=== PATIENT | male | born 1990 | race Caucasian/White ===

== ENCOUNTER 2017-08-28 11:16 | Inpatient (IN) | payer MEDICAID ==
[~2017-08-28] VITALS: Ht 177.8 cm; Wt 79.0 kg
[~2017-08-28 11:16] MED LIST: CYCL-1 PO; ONDA8TAB9 PO
[2017-08-28 12:00] LABS: BASOPHILS # (AUTO) 0.1 X10'3 (0-0.2); BASOPHILS % (AUTO) 0.5 % (0-1); EOSINOPHILS # (AUTO) 0.2 X10'3 (0-0.9); EOSINOPHILS % (AUTO) 1.9 % (0-6); HEMATOCRIT 43.5 % (42.0-52.0); HEMOGLOBIN 14.5 g/dl (14.0-17.9); LYMPHOCYTES # (AUTO) 2.2 X10'3 (1.1-4.8); LYMPHOCYTES % (AUTO) 18.9 % (21-51); MEAN CORPUSCULAR HEMOGLOBIN 30.3 PG (27.0-31.0); MEAN CORPUSCULAR HGB CONC 33.3 % (33.0-36.5); MEAN CORPUSCULAR VOLUME 91.1 FL (78-98); MEAN PLATELET VOLUME 10.2 FL (7.4-10.4); MONOCYTES % (AUTO) 8.8 % (2-12); NEUTROPHILS # (AUTO) 8.1 X10'3 (1.8-7.7); NEUTROPHILS % (AUTO) 69.9 % (42-75); PLATELET COUNT 226 X10'3 (140-440); RED BLOOD COUNT 4.77 X10'6 (4.70-6.10); RED CELL DISTRIBUTION WIDTH 13.8 % (11.5-14.5); WHITE BLOOD COUNT 11.6 X10'3 (4.5-11.0)
[2017-08-28 12:24] LABS: ALANINE AMINOTRANSFERASE 33 U/L (12-78); ALBUMIN/GLOBULIN RATIO 0.8 (1.1-1.5); ALKALINE PHOSPHATASE 81 IU/L (46-116); ANION GAP 5 (8-16); ASPARTATE AMINO TRANSFERASE 24 U/L (10-37); BILIRUBIN,TOTAL 0.9 MG/DL (0.1-1.0); BLOOD UREA NITROGEN 20 MG/DL (7-18); BUN/CREATININE RATIO 17.4 (5.4-32.0); CALCIUM 8.6 MG/DL (8.5-10.1); CHLORIDE 106 MMOL/L (99-107); CREATININE 1.15 MG/DL (0.60-1.10); GLUCOSE 82 MG/DL (70-104); POTASSIUM 4.5 MMOL/L (3.5-5.1); SODIUM 137 MMOL/L (135-145); TOTAL CARBON DIOXIDE 25.9 MMOL/L (24-32); TOTAL PROTEIN 6.6 G/DL (6.4-8.2); eGFR 77 ML/MIN
[2017-08-28 14:03] LABS: MAGNESIUM 1.9 MG/DL (1.5-2.4)
[2017-08-28] MEDS ORDERED: CefTRIAXone 2gm/D5W 50ml ADVTG 50 ML IV ONE (14:25)
[2017-08-28] MEDS ORDERED: normal saline 1000ML IV soln IVB ONE (14:25)
[2017-08-28] MEDS ORDERED: aspirin 81mg tab.chew PO ONE (14:25)
[2017-08-28] MEDS ORDERED: acetaminophen 325mg tablet PO ONE (14:30)
[2017-08-28] MEDS ORDERED: iohexol 350MG/ML 100ml bottle IV ONE (14:31)
[2017-08-28] MEDS ORDERED: heparin 10,000 units/1 ML INJ IV PRN (15:25)
[2017-08-28] MEDS ORDERED: heparin 10,000 units/1 ML INJ IV ONE (15:25)
[2017-08-28] MEDS ORDERED: ipratropium/albuterol 3ml nebule NEB ONE (15:50)
[2017-08-28] MEDS ORDERED: normal saline 1000ml 1,000 ML IV SCH (16:03)
[2017-08-28] MEDS ORDERED: potassium Cl 40MEQ/NS 500ml 500 ML IV PRN ×2 (16:05)
[2017-08-28] MEDS ORDERED: acetaminophen 325mg tablet PO PRN ×2 (16:05)
[2017-08-28] MEDS ORDERED: dextrose 50%-water 50ml dispensing syringe IV PRN (16:05)
[2017-08-28] MEDS ORDERED: LORazepam 1 MG tablet PO PRN (16:05)
[2017-08-28] MEDS ORDERED: haloperidol lactate 5mg/ml inj IM PRN (16:05)
[2017-08-28] MEDS ORDERED: LORazepam 2 mg/ml vial IV PRN (16:05)
[2017-08-28] MEDS ORDERED: mag hydrox/Alum hydrox/simeth 30ml oral suspension PO PRN (16:05)
[2017-08-28] MEDS ORDERED: haloperidol 5mg tablet PO PRN (16:05)
[2017-08-28] MEDS ORDERED: HYDROcodone/acetaminophen 5mg/325mg tablet PO PRN (16:05)
[2017-08-28] MEDS ORDERED: magnesium 2GM in 50ml NS 50 ML IV PRN (16:05)
[2017-08-28] MEDS ORDERED: magnesium 4gm in 100ml NS 100 ML IV PRN (16:05)
[2017-08-28] MEDS ORDERED: magnesium Cl slow-release 64mg tablet PO PRN (16:05)
[2017-08-28] MEDS ORDERED: potassium Cl 20 mEq SR tablet PO PRN ×2 (16:05)
[2017-08-28] MEDS ORDERED: magnesium hydroxide 30ml (MOM) UD suspension PO PRN (16:05)
[2017-08-28] MEDS ORDERED: ondansetron/PF 4mg/2ml inj IV PRN (16:05)
[2017-08-28] MEDS ORDERED: HYDROcodone/acetaminophen 10/325mg tab PO PRN (16:05)
[2017-08-28 17:47] LABS: INR 1.2 INR; PARTIAL THROMBOPLASTIN TIME 53 SECONDS (22-32); PROTHROMBIN TIME 12.4 SECONDS (9.0-12.0)
[2017-08-28 20:00] VITALS: BP_SYST 109; BP_SYST 114; BP_SYST 118; BP_DIAS 67; BP_DIAS 74; BP_DIAS 77
[2017-08-28] MEDS ORDERED: temazepam 15mg capsule PO PRN (21:00)
[2017-08-28] MEDS: heparin, porcine 5000 units/ml vial SQ SCH (21:08)
[2017-08-28 23:42] VITALS: BP 130/74
[2017-08-29 01:09] LABS: BASOPHILS # (AUTO) 0.4 X10'3 (0-0.2); BASOPHILS % (AUTO) 3.4 % (0-1); EOSINOPHILS # (AUTO) 0.2 X10'3 (0-0.9); EOSINOPHILS % (AUTO) 1.4 % (0-6); HEMATOCRIT 42.6 % (42.0-52.0); HEMOGLOBIN 14.3 g/dl (14.0-17.9); LYMPHOCYTES # (AUTO) 2.1 X10'3 (1.1-4.8); LYMPHOCYTES % (AUTO) 17.9 % (21-51); MEAN CORPUSCULAR HEMOGLOBIN 30.3 PG (27.0-31.0); MEAN CORPUSCULAR HGB CONC 33.5 % (33.0-36.5); MEAN CORPUSCULAR VOLUME 90.4 FL (78-98); MONOCYTES # (AUTO) 0.8 X10'3 (0-0.9); MONOCYTES % (AUTO) 7.2 % (2-12); NEUTROPHILS # (AUTO) 8.2 X10'3 (1.8-7.7); NEUTROPHILS % (AUTO) 70.1 % (42-75); PLATELET COUNT 239 X10'3 (140-440); RED BLOOD COUNT 4.71 X10'6 (4.70-6.10); RED CELL DISTRIBUTION WIDTH 12.7 % (11.5-14.5); WHITE BLOOD COUNT 11.7 X10'3 (4.5-11.0)
[2017-08-29 01:23] LABS: ALANINE AMINOTRANSFERASE 33 U/L (12-78); ALBUMIN 2.7 G/DL (3.4-5.0); ALBUMIN/GLOBULIN RATIO 0.8 (1.1-1.5); ALKALINE PHOSPHATASE 83 IU/L (46-116); ANION GAP 6 (8-16); ASPARTATE AMINO TRANSFERASE 23 U/L (10-37); BILIRUBIN,TOTAL 0.6 MG/DL (0.1-1.0); BLOOD UREA NITROGEN 18 MG/DL (7-18); BUN/CREATININE RATIO 15.7 (5.4-32.0); CALCIUM 8.4 MG/DL (8.5-10.1); CHLORIDE 108 MMOL/L (99-107); CREATININE 1.15 MG/DL (0.60-1.10); GLUCOSE 121 MG/DL (70-104); POTASSIUM 4.3 MMOL/L (3.5-5.1); SODIUM 139 MMOL/L (135-145); TOTAL CARBON DIOXIDE 24.9 MMOL/L (24-32); TOTAL PROTEIN 6.2 G/DL (6.4-8.2); eGFR 77 ML/MIN
[2017-08-29 01:27] LABS: MAGNESIUM 1.8 MG/DL (1.5-2.4)
[2017-08-29 07:10] VITALS: BP 112/79
[2017-08-29] MEDS ORDERED: pantoprazole 40mg Tablet.DR PO SCH (07:30)
[2017-08-29] MEDS ORDERED: thiamine 100mg tablet PO SCH (08:00)
[2017-08-29] MEDS: heparin, porcine 5000 units/ml vial SQ SCH (08:00)
[2017-08-29] MEDS ORDERED: K and/or MAG REPLACEMENT MC SCH (08:00)
[2017-08-29] MEDS ORDERED: cefTRIAXone 1g/NS 100ml IVPB 100 ML IV SCH (08:00)
[2017-08-29] MEDS ORDERED: folic acid 1mg tablet PO SCH (08:00)
[2017-08-29] MEDS ORDERED: pneumococcal 23-VAL P-sac vacc 25 mcg/0.5ml vial IMVAC ONE (09:00)
[2017-08-29 13:14] VITALS: BP 137/92
[2017-08-29] MEDS ORDERED: iohexol 300mg/ml 100ml inj. ONE (14:01)
== END 2017-08-29 15:09 | disposition left against medical advice (07) | DRG 139 ==
LOC: ER 11:17 → ED HOLD 16:03 → SUR 3N 19:08
PROVIDERS: ADMIT Internal Medicine; ATTEND Family Medicine
PROC: B32T1ZZ Computerized Tomography (CT Scan) of Left Pulmonary Artery using Low Osmolar Contrast (ICD-10-PCS; principal; 2017-08-28)
PROC: B3201ZZ Computerized Tomography (CT Scan) of Thoracic Aorta using Low Osmolar Contrast (ICD-10-PCS; 2017-08-28)
PROC: B32S1ZZ Computerized Tomography (CT Scan) of Right Pulmonary Artery using Low Osmolar Contrast (ICD-10-PCS; 2017-08-28)
PROC: BW281ZZ Computerized Tomography (CT Scan) of Head using Low Osmolar Contrast (ICD-10-PCS; 2017-08-29)
DX: J18.1 Lobar pneumonia, unspecified organism (principal); I42.9 Cardiomyopathy, unspecified; I50.9 Heart failure, unspecified; F17.200 Nicotine dependence, unspecified, uncomplicated; F15.10 Other stimulant abuse, uncomplicated; Z53.21 Procedure and treatment not carried out due to patient leaving prior to being seen by health care provider; F17.210 Nicotine dependence, cigarettes, uncomplicated; H54.62 Unqualified visual loss, left eye, normal vision right eye; F12.90 Cannabis use, unspecified, uncomplicated; R74.8 Abnormal levels of other serum enzymes; G89.29 Other chronic pain; H53.8 Other visual disturbances; M54.9 Dorsalgia, unspecified; R59.0 Localized enlarged lymph nodes; Z79.899 Other long term (current) drug therapy; Z79.01 Long term (current) use of anticoagulants; Z79.82 Long term (current) use of aspirin; Z87.74 Personal history of (corrected) congenital malformations of heart and circulatory system; Z71.6 Tobacco abuse counseling
CPT/HCPCS: 36415; 70470; 71045; 71275; 80053; 82948; 83605; 83735; 83880; 84145; 84484; 85025; 85610; 85730; 87040; 87070; 87502; 87503; 90732; 93005; 93306; 94640; 94760; 96365; 99285; J0696; J1644; J2270; J3370; J7030; Q9967